=== PATIENT | male | born 1950 | race Caucasian/White ===

== ENCOUNTER 2017-01-06 08:05 | Day surgery (SDC) | payer OTHER ==
[~2017-01-06 08:05] MED LIST: RINGER'S SOLUTION,LACTATED 1,000 ML IV PRN
[2017-01-06] MEDS ORDERED: RINGER'S SOLUTION,LACTATED 1,000 ML IV ONE (09:00)
[2017-01-06 12:26] VITALS: BP 113/71
[2017-01-06] MEDS ORDERED: RINGER'S SOLUTION,LACTATED 1,000 ML IV PRN (13:12)
--- NOTE | 2017-01-06 18:41 | OR ---
Operative Report - Dictated Report Narrative: OPERATIVE REPORT DATE OF OPERATION: 01/06/2017 PREOPERATIVE DIAGNOSIS: Family history of colon cancer. No recent dedicated colon studies POSTOPERATIVE DIAGNOSIS: 4 mm rectal polyp (not retrieved) 4 mm polyp at 20 cm (pathology pending). 0.6 cm area of polypoid change and 65 cm (pathology pending). Significant diverticulosis OPERATION: Colonoscopy with snare polypectomy in the rectum and at 20 cm. Hot biopsy forceps polypectomy at 65 cm SURGEON: Meghan Muñiz MD ANESTHESIA: MAC Devon Heaton CRNA INDICATIONS FOR PROCEDURE: The patient is a 66-year-old male referred by A Ana Laura CORNEJO. The patient's father had colon cancer at age 72. The patient's last colonoscopy was in 2006 and remarkable only for diverticulosis. He is currently asymptomatic. FINDINGS: 4 mm polyp in the rectum (not retrieved). 4 mm polyp at 20 cm ( retrieved and submitted). 0.6 cm area of polypoid change at 65 cm biopsied and destroyed with electrocautery. Significant sigmoid diverticulosis NARRATIVE OF PROCEDURE: The patient was identified in the holding area, and prior to the administration of anesthetic, a multidisciplinary timeout was observed. With the patient in the left lateral position and after the administration of intravenous sedation, the perineum was inspected. There was no evidence of pilonidal disease or skin breakdown. The external appearance of the anus was normal. Sphincter tone was good. The flexible fiberoptic colonoscope was inserted into the rectum which was insufflated with air. Immediately apparent was a pedunculated polyp just proximal to the dentate line. The rectal mucosa and submucosal vascular pattern appeared otherwise normal, the prep was seen to be complete. The scope was retroflexed and the polyp amputated with cautery snare. The site was seen to be completely hemostatic. The scope was then redirected proximally. The polyp could not be subsequently identified or retrieved. The scope was advanced through the sigmoid colon, where at 20 cm a pedunculated polyp was encountered. This was amputated with cautery snare, retrieved, and submitted to pathology. The site appeared complete and hemostatic. The scope was then advanced proximally through the sigmoid colon which contained numerous large noninflamed diverticular opening some of which were impacted with stool. The scope was advanced up the descending colon, and around the splenic flexure where the triangular haustral architecture of the transverse colon was seen. The scope was advanced across the transverse colon, around the hepatic flexure to the cecum, where the confluence of tenia and the ileocecal valve were identified. The mucosa at this level appeared normal. The scope was then slowly withdrawn in a circular fashion so that all aspects of colonic mucosa were inspected. The colon was normal in course and caliber. The haustral architecture appeared well preserved throughout with no evidence of external compression. The mucosa and submucosal vascular pattern appeared normal, specifically there was no gross evidence to suggest colitis or inflammatory bowel disease and no AV malformations were seen. The diverticulosis was moderate in degree and confined primarily to the sigmoid colon. An additional polyp was encountered at 65 cm. This was biopsied and then thoroughly destroyed with electrocautery. The polyp appeared to be completely denatured and hemostatic. The scope was gradually withdrawn to the level of the rectum. As much insufflated air as possible was removed. The scope was withdrawn from the patient and the procedure terminated. The patient tolerated the anesthetic and procedure well without complication and was transferred back to the ambulatory surgery area awake and in stable condition. The patient remained stable throughout a period of postoperative observation. He denied abdominal discomfort, was able to tolerate by mouth intake, and was up without assistance. I shared the operative findings with the patient and he was given copies of the photographs which appear in the medical record. He was discharged home with instructions not to engage in hazardous activity today, but may resume normal activity tomorrow, and advance diet as tolerated. He is to continue those medications as listed in the history and physical exam. I made arrangements to contact him with the biopsy reports and will make additional recommendations for treatment and follow-up based upon those results. A pamphlet on diverticular disease was reviewed with him and given to him. A trial of Benefiber in conjunction with a high fiber diet was advised. I explained that the polypectomy site at 65 cm will need to be reinspected in about 2 months to ensure complete destruction of the polyp prior to establishing a longer surveillance interval. Reviewed and electronically signed
== END 2017-01-06 08:06 | disposition home or self-care (01) ==
LOC: AMB 08:05
PROVIDERS: ATTEND Surgery
PROC: 0DBE8ZX Excision of Large Intestine, Via Natural or Artificial Opening Endoscopic, Diagnostic (ICD-10-PCS; 2017-01-06)
PROC: 0DBP8ZX Excision of Rectum, Via Natural or Artificial Opening Endoscopic, Diagnostic (ICD-10-PCS; principal; 2017-01-06 10:00)
DX: Z12.11 Encounter for screening for malignant neoplasm of colon (principal); D37.4 Neoplasm of uncertain behavior of colon; K63.5 Polyp of colon; K57.30 Diverticulosis of large intestine without perforation or abscess without bleeding; G47.30 Sleep apnea, unspecified; Z87.891 Personal history of nicotine dependence; Z68.32 Body mass index [BMI] 32.0-32.9, adult; Z80.0 Family history of malignant neoplasm of digestive organs

== ENCOUNTER 2018-01-20 06:44 | Inpatient (IN) ==
[~2018-01-20 06:44] MED LIST changes: -RINGER'S SOLUTION,LACTATED 1,000 ML IV PRN; +ceFAZolin SODIUM 1 GM VIAL IV PRN
--- NOTE | 2018-01-20 07:14 | ANES ---
Anesthesia Pre Procedure Eval Vitals/Labs: Last Vital Signs Temp 36.6 C 01/20/18 06:49 Pulse 71 01/20/18 06:49 Resp 18 01/20/18 06:49 BP 113/74 01/20/18 06:49 Pulse Ox 97 01/20/18 06:49 HOME MEDICATIONS Glucosam/Chondr/Collagn/Hyalur [Glucosamine & Chondroitin Cap] 1 ea PO DAILY 10/22/12 [Last Taken Unknown] Calcium Carbonate [[id number]] 500 mg PO DAILY 12/25/16 [Last Taken Unknown] Multivitamins [Multivitamin Gina] 1 cap PO DAILY 12/25/16 [Last Taken Unknown] gabapentin 600 mg tablet 600 mg PO HS #90 tab 01/01/18 [Last Taken Unknown] cyclobenzaprine 10 mg tablet 10 mg PO DAILY PRN #30 tab 01/09/18 [Last Taken Unknown] acetaminophen 500 mg capsule 1,000 mg PO Q6H PRN cap 01/15/18 [Last Taken Unknown] Allergies/Adverse Reactions: Allergies Allergy/AdvReac Type Severity Reaction Status Date / Time No Known Allergies Allergy Verified 01/15/18 15:38 - Planned Procedure Planned Procedure: Left Total Shoulder vs Reverse Total Shoulder Medication List Reviewed:: Yes Allergies Verified: Yes Medical History (Last Reviewed 01/20/18 @ 07:10 by Devon Heaton CRNA) CPAP (continuous positive airway pressure) dependence Former smoker Occasional alcohol consumption Wears glasses Wears partial dentures top and bottom Avascular necrosis of right femoral head Onset Date: 2003 right total hip arthroplasty Chicken pox Onset Date: Unknown Measles Onset Date: Unknown Mumps Onset Date: Unknown Palpitations Onset Date: 2010 resolved Rheumatic fever Onset Date: Unknown no sequela Shoulder pain, left Onset Date: ~2017 Sleep apnea Onset Date: Unknown Surgical History (Last Reviewed 01/20/18 @ 07:11 by Devon Heaton CRNA) History of tonsillectomy History of colonoscopy Onset Date: 04/02/17 Josean- tubular adenoma, tubulovillous adenoma. Recheck Feb 2017. '18 tubular adenoma. Recheck 3 yrs.- 01/06/17, 04/02/17 Mary Kay-' scattered diverticulosis.- 06/09/06 History of inguinal hernia repair Onset Date: 02/17/06 Josean-right w/mesh patch History of left hip replacement Onset Date: 09/03/06 Kervin History of right hip replacement Onset Date: 2003 Family History (Last Reviewed 01/20/18 @ 07:11 by Devon Heaton CRNA) Mother , age 73, complications from Alzheimers Alzheimers disease Borderline diabetes Father , age 75, colon cancer(dx age 73) Myocardial infarction Cancer, Onset Age: 73 colon Brother Alive and well Brother Alive and well Grandfather Cancer colon neoplasm, malignant, maternal maternal Grandmother Diabetes maternal maternal Daughter Alive and well Son Alive and well Son Alive and well Daughter Morbid obesity - Family Anesthesia History Family History:: no untoward family reactions to anesthesia, no familial bleeding tendencies, no family history of clotting disorders, no family history of premature - Airway/Neck/Teeth Teeth Condition: Missing Teeth Denture Type: Partial- Upper Neck Exam: non-tender Mallampatti Score: 3 Thyromental (T-M) distance: > 6 cm Mandibulo Hyoid distance: > 3 cm - Respiratory Respiratory: chest non-tender, lungs clear Smoking Status: Former smoker Sleep Apnea currently treated: Yes Sleep Apnea by current assessment: Yes - Cardiovascular Patient History - Cardiac/Respiratory: CPAP/BiPAP Home Use, Sleep Apnea Tolerates Activity: Good Heart Sounds: S1 & S2, Regular - Anesthesia Assessment and Plan ASA Class: PS, II Anesthesia Type Plan: General LMA, Block - interscalene block for post op pain relief Planned difficult intubation/equipment available: No - standby
[2018-01-20] MEDS: RINGER'S SOLUTION,LACTATED 1,000 ML IV PRN ×3 (07:29→10:29)
[2018-01-20] MEDS ORDERED: NORMAL SALINE 1,000 ML IV PRN (10:56)
[2018-01-20] MEDS ORDERED: ONDANSETRON HCL/PF 2 MG/ML VIAL IV PRN (10:56)
[2018-01-20] MEDS ORDERED: oxyCODONE HCL/ACETAMINOPHEN 1 TAB TABLET PO PRN (10:56)
[2018-01-20] MEDS ORDERED: MAGNESIUM HYDROXIDE 30 ML UDC PO PRN (10:56)
[2018-01-20] MEDS ORDERED: ACETAMINOPHEN 500 MG TABLET PO PRN (10:56)
[2018-01-20] MEDS ORDERED: MAG HYDROX/ALUMINUM HYD/SIMETH 30 ML UDC PO PRN (10:56)
[2018-01-20] MEDS ORDERED: diphenhydrAMINE HCL 50 MG/ML VIAL IV PRN (10:56)
[2018-01-20] MEDS ORDERED: MORPHINE SULFATE 2 MG/ML DISP.SYRIN IV PRN (10:56)
--- NOTE | 2018-01-20 11:12 | OR ---
Operative Report - Dictated Report Narrative: Date: 01/20/2018 Physician: Jose Jasmine M.D. Bakery Sales Clerk: Alvino Moss PA-C Preoperative diagnosis: Left glenohumeral osteoarthritis Postoperative diagnosis: Left glenohumeral osteoarthritis Procedure: Left anatomic total shoulder arthroplasty Anesthesia: General plus regional Complications: None Estimated blood loss: 200 mL Specimens: Bone for disposal Retained implants: Depuy Global Unite size 12 standard stem, Global Unite anatomic proximal body size 12, Global Unite eccentric humeral head 56 mm x 18 mm, Global anchor peg glenoid size 52 mm Drains: None Indications: Kar is a 67 year-old male who has been followed in my clinic with complaints of shoulder pain consistent with left glenohumeral arthritis. Physical exam and diagnostic imaging were consistent with his complaints and concern for glenohumeral arthritis with an intact rotator cuff. Conservative measures have failed including, but not limited to, passage of time, activity modification, medications, physical therapy/home exercise program, or injections. The risks, benefits, and alternatives were discussed in clinic. The risks being , bleeding, infection, blood clots, nerve, tendon, ligament, blood vessel injury, persistent pain, arthrosis, stiffness, need for prolonged therapy, implant failure/loosening, need for additional procedures, and persistent symptoms. Consent was obtained in the clinic. Procedure: After marking the correct extremity in the preoperative holding area, a timeout was performed in the operating room. IV antibiotics consisting of 2 g of Ancef were administered prior to the procedure. A general followed by regional anesthetic was induced by the nurse locomotive crane engineer. This was in the supine position, then the patient was transitioned to a beachchair position with all bony prominences well-padded, head in neutral, the nonoperative arm well supported, and the legs padded with SCDs in place. The operative shoulder was then prepped and draped in a standard sterile fashion. Preoperatively the shoulder had slightly limited abduction and external rotation. After marking out the bony landmarks, an approximately 12 cm deltopectoral incision was marked out and incised with a sharp knife. A combination of blunt dissection and electrocautery was carried down through subcutaneous tissue to the level of the deltopectoral fascia. The fascial interval was developed with Metzenbaum scissors identifying the cephalic vein which was protected and retracted medially. Blunt finger dissection was used to develop the deltopectoral interval and the deltoid was retracted laterally while the pectoralis major and cephalic vein were retracted medially. This revealed the conjoined tendon and anterior aspect of the shoulder. The bicipital groove was identified as well as the lesser tuberosity and we marked out our location for our subscapularis tenotomy. The subscapularis tendon was tagged with Vicryl suture and then sharply divided medial to its insertion point leaving a good cuff of tendon attached to the lesser tuberosity. Our incision was carried up through the rotator cuff interval to the level of the glenoid. The inferior aspect of the subscapularis as well as the inferior capsule was released taking care to protect the axillary nerve. The capsule was then released from the anterior and inferior aspects of the glenoid. At this point the arm was externally rotated and the shoulder dislocated delivering the humeral head up and out of the wound. The supraspinatus tendon was inspected and noted to be intact. At this point we identified our starting point for the humeral starting reamer centered over t he intramedullary canal just onto the articular surface of the superior aspect of the humeral head. The entry reamer was advanced down the intramedullary canal of the humerus. Sequential hand reaming up to a size 12 mm reamer was performed achieving good chatter cortical chatter. The reamer was left in place and then the humeral head cutting jig was attached. This was placed in approximately 25 of retroversion at the appropriate height based on the level of the greater tuberosity. This was then pinned into place and the reamer removed. The humeral head was then resected being careful to protect the supraspinatus insertion. A rongeur was used to clean up some anterior inferior osteophyte. A protective metal cap was then placed over the cut end of the proximal humerus. Attention was then turned to the glenoid. A series of glenoid retractors were used to retract the humeral head posteriorly and inferior out of the way well as to retract the anterior soft tissue giving us 360 exposure of the glenoid. The biceps tendon was tenotomized at the bicipital anchor. The labrum was then removed in its entirety with a sharp knife. The base of the coracoid was identified as well as the inferior/lateral border of the scapula and these were marked out to establish the bony anatomy of the glenoid. The glenoid was sized to a 52 mm component. The glenoid guide was then placed in the appropriate position in the center guide pin advanced into place. The glenoid was then reamed removing all cartilage and soft tissue being careful to preserve subchondral bone. While reaming, we noted a small crack in the anterior- inferior aspect of the glenoid with a small amount of gapping when stressed. At this point, we elected to place a 26 mm Accutwist screw for fixation. After placing the screw, the glenoid was stable to probing. The central peg drill was then advanced down over our central pin and drilled. The drill guide for the peripheral pegs was then placed with one peg superiorly and two pegs inferiorly. These were sequentially drilled. The guide was then removed. The glenoid was then irrigated and thoroughly dried and bone cement was packed into the peripheral peg holes. A size 52 mm Global anchor peg glenoid was then impacted into place. Once the cement had adequately cured we turned our attention back to the humerus. A size 12 broach was advanced into the appropriate position once again and 25 of retroversion. A size 12 trial humeral stem was then impacted into place and we began trialing humeral heads. It was determined that a size 56 x 18 mm ecc entric head with the eccentricity placed posteriorly and slightly superior gave us the best fit with good stability. Full passive range of motion was able to be obtained. The final 12 mm humeral component was then assembled on the back table and then impacted into its final position in the appropriate amount of retroversion. We then re-trialed our humeral head to confirm the appropriate size. The final humeral head was then impacted into place with the eccentric to the placed posteriorly and inferiorly. A final check demonstrated full passive range of motion with good stability. At this point the wound was copiously irrigated with normal saline. The subscapularis was repaired to the lesser tuberosity and remaining cuff of soft tissue with #2 Fiberwire in a horizontal mattress fashion and then oversewn with 1 Vicryl. 0 Vicryl was utilized in order to repair the delto-pectoral fascia. 3-0 Vicryl was placed in the subcutaneous tissue. Skin was closed with a running subcuticular 3-0 Monocryl. Dressings consisting of Prineo, 4 x 4, ABD, and tape were applied. The operative arm was then placed in a shoulder immobilizer. All sponge, needle, blade, and instrument counts were correct prior to closing the wounds. The patient was awoken and transferred to the postanesthesia care unit in stable condition.
--- NOTE | 2018-01-20 11:28 | ANES ---
Anesthesia Procedure Note Procedure Note: ANESTHESIA PROCEDURE NOTE Date of Procedure: 01/20/2018 Time of procedure: 7:55 AM. Performed by: RAHUL Saldaña CRNA, MSN Personnel Interviewer: Cony Pompa RN. Preprocedure diagnosis: Post left total shoulder arthroplasty. Post procedure diagnosis: Same. Procedure: Left interscalene nerve block. Indications: Post left total shoulder arthroplasty pain relief. Findings: See below. Details of the procedure: The patient was brought to OR #4 and placed in semi- Fowlers position. The patient was prepped with chlorhexidine and using ultrasound guidance the left interscalene segment of the brachial plexus was identified and lidocaine 1% was infiltrated to the skin of the intended injec tion site. Under ultrasound guidance the interscalene nerve bundles were approached with visualization of a 2inch stimulator needle visualized unde ultrasound until a shoulder/arm response was identified on nerve stimulator. Once the stimulator response was effective at less than 0.5 mV and greater than 0.3 mV the bracheal plexus nerves at this level were surrounded with 30 mL bupivacaine 0.25% with 1-200,000 epinephrine. Please see radiology/ultrasound report for details and retained images of the procedure. EBL: 0 Fluids: N/A. Specimen: N/A. Post procedure condition: The patient tolerated the procedure well. No complications were noted. Thank you for this consultation. Devon Heaton CRNA, ARNP, MSN
--- NOTE | 2018-01-20 11:29 | ANES ---
Post Anesthesia Discharge - Transfer of Care Transfer of Care handoff given to nurse: Yes - Discharge from PACU Discharge from PACU when meets criteria: Yes - Comfortable in PACU.
--- NOTE | 2018-01-20 12:11 | ANES ---
Post Anesthesia Assessment - Vital Signs Vitals: Last Vital Signs Temp 36.5 C 01/20/18 11:55 Pulse 81 01/20/18 11:55 Resp 12 01/20/18 11:55 BP 102/50 01/20/18 11:55 Pulse Ox 97 01/20/18 11:55 Airway Patency: Normal - Mental Status Level Of Consciousness: Awake, Alert - Pain Level Pain Score: 0 - N/V Assessment Nausea/Vomiting Presence: None Dehydration:: No
[2018-01-20] MEDS: ceFAZolin SODIUM 2 GM in DEXTROSE 5 % IN WATER 50 ML IV SCH ×4 (15:11→20:42)
[2018-01-20] MEDS ORDERED: SENNOSIDES/DOCUSATE SODIUM 1 TAB TABLET PO SCH (21:00)
[2018-01-21] MEDS: oxyCODONE HCL/ACETAMINOPHEN 1 TAB TABLET PO PRN ×5 (00:10→16:58)
[2018-01-21] MEDS: ceFAZolin SODIUM 2 GM in DEXTROSE 5 % IN WATER 50 ML IV SCH ×2 (02:20)
[2018-01-21 05:56] LABS: Hematocrit 32.1 % (42.0-52.0); Hemoglobin 10.7 gm/dL (13.5-18.0); Mean Cell Volume 92.8 fl (78-100); Mean Corpuscular Hemoglobin 30.9 pg (27-31); Mean Corpuscular Hgb Conc 33.3 g/dl (32-36); Mean Platelet Volume 13.6 fl (8-11.3); Neutrophil # 10.6 K/mm3 (1.3-6.0); Platelet Count 107 K/mm3 (150-450); Red Blood Count 3.46 M/mm3 (4.7-6.0); Red Cell Distribution Width 13.7 % (11.5-14.0); White Blood Count 13.5 K/mm3 (4.0-10.5)
--- NOTE | 2018-01-21 11:44 | DS ---
(1) Status post total replacement of left shoulder Problem: Acute Description of Stay: Patient was admitted status post left total shoulder replacement on 01/20/2018. Patient was admitted for observations, pain control, return to regular diet, recovery after surgery. Patient stay has been uncomplicated to this point his pain is well controlled, he is return to regular diet, he is worked with physical therapy and was given home exercise plan. Patient's bandages were inspected, no significant drainage, his sensation is intact to light touch on exam, primary care pediatrician strength 5/5, mild diffuse tenderness about his left shoulder, capillary refill brisk, neurovascularly intact in his fingers. Patient maintains in his postoperative immobilizer. Patient will follow-up in 2 weeks in orthopedic outpatient clinic with Dr. Jasmine. He will be given pain medication, he will use ice machine, he will perform home exercise plan, maintain observation of his postoperative bandage. Patient will perform no significant lifting of his left upper extremity. Patient will maintain shoulder immobilizer in place. Patient will call our office with any acute questions or concerns. -2 pound lifting restriction left upper extremity -No external rotation beyond 40 degrees of left upper extremity -P.o. diet as tolerated -P.o. pain medication as needed, Percocet 5/325 mg, 1-2 tabs every 4-6 hours p.o. as needed -Continue home exercise plan given by PT -Maintain shoulder immobilizer for all activity -2-week follow-up with orthopedic outpatient clinic Procedures Performed: see notes below List Procedures: Left total shoulder replacement Results and Findings: Lab Pending Results 01/21/18 05:40: WBC 13.5 H, RBC 3.46 L, Hgb 10.7 L, Hct 32.1 L, MCV 92.8, MCH 30.9, MCHC 33.3, RDW 13.7, Plt Count 107 L, MPV 13.6 H, Immature Gran % (Auto) 0.80 H, Immature Gran # (Auto) 0.11 H, Neutrophils % 79.0 H, Lymphocytes % 9.1 L, Monocytes % 10.6 H, Eosinophils % 0.1, Basophils % 0.4, Nucleated RBC % 0.0, Neutrophils # 10.6 H, Lymphocytes # 1.23 L, Monocytes # 1.4 H, Eosinophils # 0.0, Absolute Basophils 0.1 Discharge Location: Home Disposition: Home self-care Condition: Good Discharge Activity: Activity as tolerated, Partial-Weight bearing - 2 pound lifting restriction left upper extremity Discharge Diet: General/regular food Referrals: Savannah Figueredo MD [Primary Care Provider] - Print Language (Greenlandic or English Available): Greenlandic Additional Patient Instructions (free text): Follow up with Orthopedic Dr. Jasmine 02/04 at 10:30am. Prescriptions (Any new or edited meds): oxyCODONE HCL/ACETAMINOPHEN [Percocet 5 MG/325 MG] 1 - 2 tab PO Q4H PRN #60 tab PRN Reason: Severe Pain (Pain Scale 7-10) Complete Home Medications List: Complete Home Medication List: Glucosam/Chondr/Collagn/Hyalur [Glucosamine & Chondroitin Cap] 1 ea PO BID 10/22/12 Calcium Carbonate [[id number]-[id number]-595] 500 mg PO BID 12/25/16 Multivitamins [Multivitamin Gina] 1 cap PO DAILY 12/25/16 cyclobenzaprine 10 mg tablet 10 mg PO DAILY PRN #30 tab 01/09/18 Acetaminophen [Tylenol] 1,000 mg PO BID PRN 01/20/18 Gabapentin [Neurontin] 600 mg PO HS 01/20/18 oxyCODONE HCL/ACETAMINOPHEN [Percocet 5 MG/325 MG] 1 - 2 tab PO Q4H PRN #60 tab 01/21/18
[2018-01-21 17:35] VITALS: BP 134/78
== END 2018-01-21 17:35 | disposition home or self-care (01) | DRG 483 ==
LOC: MS 06:44
PROVIDERS: ADMIT Orthopaedic Surgery; ATTEND Orthopaedic Surgery
DX: D69.6 Thrombocytopenia, unspecified; G47.33 Obstructive sleep apnea (adult) (pediatric); Z96.643 Presence of artificial hip joint, bilateral; M19.012 Primary osteoarthritis, left shoulder; M62.522 Muscle wasting and atrophy, not elsewhere classified, left upper arm; Z23 Encounter for immunization; Z87.891 Personal history of nicotine dependence
CPT/HCPCS: 36415; 73030; 85025; 90686; 94660; 97110; 97116; 97161; 97165